=== PATIENT | male | born 1945 | race Two or more races ===

== ENCOUNTER 2017-01-31 13:59 | Emergency (ER) | payer MEDICARE ==
[~2017-01-31] VITALS: Ht 170.2 cm; Wt 72.6 kg
[2017-01-31] MEDS ORDERED: LOSARTAN POTASS25 MG ORAL (14:07)
--- NOTE | 2017-01-31 14:18 | Emergency Room Report ---
History of Present Illness General Chief Complaint: Pain Source: Patient, EMS Present Illness HPI Patient is a 71-year-old male who presented after having increased generalized weakness and difficulty with angulation. Patient poorly had a fall approximately 4 days ago. Patient been unable to walk since the fall. Patient had generalized weakness. He denied any pain to his head. Patient reports having increased pain to the lower extremities bilaterally.The patient was able to stand with EMS assistance there is unable to ambulate. Allergies: Coded Allergies: No Known Allergies (Unverified , 01/31/17) Patient History Past Medical History: see triage record Reviewed Nursing Documentation: PMH: Agreed, PSxH: Agreed Nursing Documentation-PMH Past Medical History: No History, Except For Hx Hypertension: Yes Review of Systems All Other Systems: negative except mentioned in HPI Physical Exam Vital Signs Date Time Temp Pulse Resp B/P Pulse Ox O2 Delivery O2 Flow Rate FiO2 01/31/17 14:00 98.2 89 16 176/118 95 Room Air Sp02 EP Interpretation: reviewed, normal General Appearance: normal inspection, alert, GCS 15, mild distress, thin, Chronically Ill Head: atraumatic ENT: normal ENT inspection, hearing grossly normal, normal voice Neck: normal inspection, full range of motion, supple, no bony tend Respiratory: normal inspection, lungs clear, normal breath sounds, no respiratory distress, no retraction, no wheezing Cardiovascular #1: regular rate, rhythm, no edema Gastrointestinal: normal inspection, normal bowel sounds, soft, no guarding, no hernia, mass - lower abdomen Genitourinary: no CVA tenderness Musculoskeletal: normal inspection, back normal, normal range of motion Neurologic: normal inspection, alert, oriented x3, responsive, 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 Differential diagnosis included was not limited to anemia, urinary tract infection, electrolyte abnormality, hypothyroidism, myocardial infarction, myasthenia gravis, dehydration, among others. Because of complexity of patient's case laboratory testing and imaging studies were ordered. Patient noted have the concerning generalized weakness and appears to be having difficulty caring for himself.Laboratory testing was unremarkable. CT imaging read by radiology showed no evident intracranial hemorrhage or stroke. CT of the abdomen pelvis there is a small pericardial effusion increased was unremarkable there is presacral soft tissue stranding is retroperitoneal lymphadenopathy with lymph nodes up to 2.5 x 2 cm L5 and S1 vertebra appear sclerotic as does the pelvis consistent with bone metastasis. The patient was discussed with [facility] for further management. The patient appears stable for transfer at this time. Labs Test 01/31/17 14:20 01/31/17 14:30 Urine Color Yellow Urine Appearance Clear Urine pH 5 (4.5-8.0) Urine Specific Seffner 1.020 (1.005-1.035) Urine Protein 1+ (NEGATIVE) Urine Glucose (UA) Negative (NEGATIVE) Urine Ketones 4+ (NEGATIVE) Urine Occult Blood 2+ (NEGATIVE) Urine Nitrite Negative (NEGATIVE) Urine Bilirubin Negative (NEGATIVE) Urine Urobilinogen Normal MG/DL (0.0-1.0) Urine Leukocyte Esterase Negative (NEGATIVE) Urine RBC 2-4 /HPF (0 - 0) Urine WBC 0-2 /HPF (0 - 0) Urine Squamous Epithelial Cells Occasional /LPF Urine Bacteria Few /HPF (NONE) White Blood Count 8.7 K/UL (4.8-10.8) Red Blood Count 4.59 M/UL (4.70-6.10) Hemoglobin 12.2 G/DL (14.2-18.0) Hematocrit 37.2 % (42.0-52.0) Mean Corpuscular Volume 81 FL (80-99) Mean Corpuscular Hemoglobin 26.5 PG (27.0-31.0) Mean Corpuscular Hemoglobin Concent 32.7 G/DL (32.0-36.0) Red Cell Distribution Width 17.2 % (11.6-14.8) Platelet Count 402 K/UL (150-450) Mean Platelet Volume 6.3 FL (6.5-10.1) Neutrophils (%) (Auto) % (45.0-75.0) Lymphocytes (%) (Auto) % (20.0-45.0) Monocytes (%) (Auto) % (1.0-10.0) Eosinophils (%) (Auto) % (0.0-3.0) Basophils (%) (Auto) % (0.0-2.0) Differential Total Cells Counted 100 Neutrophils % (Manual) 81 % (45-75) Lymphocytes % (Manual) 9 % (20-45) Monocytes % (Manual) 9 % (1-10) Eosinophils % (Manual) 0 % (0-3) Basophils % (Manual) 1 % (0-2) Band Neutrophils 0 % (0-8) Platelet Estimate Adequate Platelet Morphology Normal Hypochromasia 1+ Anisocytosis 1+ Prothrombin Time 10.4 SEC (9.30-11.50) Prothromb Time International Ratio 1.0 (0.9-1.1) Activated Partial Thromboplast Time 33 SEC (23-33) Sodium Level 141 mEQ/L (135-145) Potassium Level 3.8 mEQ/L (3.4-4.9) Chloride Level 97 mEQ/L (98-107) Carbon Dioxide Level 23 mEQ/L (20-30) Anion Gap 21 (5-15) Blood Urea Nitrogen 24 mg/dL (7-23) Creatinine 0.7 mg/dL (0.7-1.2) Estimat Glomerular Filtration Rate > 60 mL/min (>60) Glucose Level 111 mg/dL (74-106) Lactic Acid Level 1.50 mmol/L (0.66-2.22) Calcium Level 9.8 mg/dL (8.6-10.2) Total Bilirubin 0.5 mg/dL (0.0-1.2) Aspartate Amino Transf (AST/SGOT) 8 U/L (5-40) Alanine Aminotransferase (ALT/SGPT) 5 U/L (3-41) Alkaline Phosphatase 467 U/L (40-129) Total Creatine Kinase 38 U/L (38-174) Creatine Kinase MB < 1.5 ng/mL (< 6.7) Creatine Kinase MB Relative Index Troponin I < 0.30 ng/mL (<=0.30) Pro-B-Type Natriuretic Peptide 635 pg/mL (0-125) Total Protein 8.1 g/dL (6.6-8.7) Albumin 3.9 g/dL (3.5-5.2) Globulin 4.2 g/dL Albumin/Globulin Ratio 0.9 (1.0-2.7) Last Vital Signs Date Time Temp Pulse Resp B/P Pulse Ox O2 Delivery O2 Flow Rate FiO2 01/31/17 14:00 98.2 89 16 176/118 95 Room Air Status: improved Disposition: [facility] Condition: Serious Jean-Pierre Toro January 31, 2017 14:18
[2017-01-31] MEDS ORDERED: metroNIDAZOLE 500mg 100 ML IV SCH (14:30)
[2017-01-31] MEDS ORDERED: Cefepime HCl 1 GM in NS 55 ML IV SCH (14:30)
[2017-01-31] MEDS ORDERED: Tubing IV Cassette IV ONE (14:56)
[2017-01-31] MEDS ORDERED: NS 55 ML IV ONE (14:56)
[2017-01-31] MEDS ORDERED: Tubing IV Secondary IV ONE (14:56)
[2017-01-31] MEDS ORDERED: Cefepime 1gm vial ONE (14:56)
--- NOTE | 2017-01-31 15:01 | Diagnostic Imaging Report ---
Indication: Chest Pain Comparison: None A single view chest radiograph was obtained. Findings: No definite infiltrate or pulmonary vascular congestion identified. The heart is enlarged. The aorta is mildly enlarged consistent with atherosclerotic vascular disease. The bones are osteopenic. Impression: No acute disease
[2017-01-31 15:04] LABS: APPEARANCE,URINE CLEAR; KETONES,URINE 4+ (NEGATIVE); LEUKOCYTE ESTERASE ,URINE NEGATIVE (NEGATIVE); NITRITE,URINE NEGATIVE (NEGATIVE); PH,URINE 5 (4.5-8.0); PROTEIN,URINE 1+ (NEGATIVE); UROBILINOGEN,URINE NORMAL MG/DL (0.0-1.0)
[2017-01-31 15:07] LABS: MEAN CORPUSCULAR HEMOGLOBIN 26.5 PG (27.0-31.0); MEAN CORPUSCULAR HGB CONC 32.7 G/DL (32.0-36.0); MEAN CORPUSCULAR VOLUME 81 FL (80-99); MEAN PLATELET VOLUME 6.3 FL (6.5-10.1); PLATELET COUNT 402 K/UL (150-450); RED BLOOD COUNT 4.59 M/UL (4.70-6.10); RED CELL DISTRIBUTION WIDTH 17.2 % (11.6-14.8); WHITE BLOOD COUNT 8.7 K/UL (4.8-10.8)
[2017-01-31 15:11] LABS: PROTHROMBIN TIME 10.4 SEC (9.30-11.50)
[2017-01-31 15:19] LABS: BACTERIA,URINE FEW /HPF; SQUAMOUS EPITHELIAL CELL,UR OCCASIONAL /LPF (NONE/OCC); WBC,URINE 0-2 /HPF (0 - 0)
[2017-01-31 15:31] LABS: TROPONIN I < 0.30 ng/mL (<=0.30)
[2017-01-31 15:34] LABS: ALANINE AMINOTRANSFERASE 5 U/L (3-41); ALBUMIN/GLOBULIN RATIO 0.9 (1.0-2.7); ANION GAP 21 (5-15); ASPARTATE AMINO TRANSFERASE 8 U/L (5-40); CALCIUM 9.8 mg/dL (8.6-10.2); CARBON DIOXIDE 23 mEQ/L (20-30); CHLORIDE 97 mEQ/L (98-107); CREATININE 0.7 mg/dL (0.7-1.2); GLOMERULAR FILTRATION RATE > 60 mL/min (>60); HEMOLYSIS 0; POTASSIUM 3.8 mEQ/L (3.4-4.9); SODIUM 141 mEQ/L (135-145); TOTAL PROTEIN 8.1 g/dL (6.6-8.7)
--- NOTE | 2017-01-31 15:38 | Diagnostic Imaging Report ---
Indication: Headache Technique: Contiguous 5 mm thick transaxial imaging of the head obtained in a Siemens Sensation [address] scanner. Soft tissue and bone windows generated. Total Dose length Product (DLP): [address] Dose Index Volume (CTDIvol): 70.38 mGy Comparison: none Findings: There is mild prominence of the ventricles, basal cisterns, and cerebral sulci consistent with atrophy. Mild, nonspecific, white matter hypoattenuation is noted throughout the brain consistent with chronic small vessel disease. Cystic focus in the right frontal gutiérrez radiata adjacent to the anterior horn of the lateral ventricle consistent with an old lacunar infarct. There is no midline shift, edema, acute hemorrhage, mass effect, or abnormal extra-axial fluid collections. Bones and extra osseous soft tissues are unremarkable. Impression: No acute intracranial bleed, mass effect or edema. 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 Mild atrophy of the brain. Nonspecific white matter hypoattenuation probably due to chronic small vessel disease. The CT scanner at [facility] is accredited by the [employer] and the scans are performed using dose optimization techniques as appropriate to a performed exam including Automatic Exposure control.
[2017-01-31 15:44] LABS: CKMB < 1.5 ng/mL (< 6.7)
[2017-01-31 16:00] VITALS: BP 203/77
[2017-01-31 16:21] LABS: ANISOCYTOSIS 1+; BAND NEUTROPHILS % (MANUAL) 0 % (0-8); BASOPHILS % (MANUAL) 1 % (0-2); EOSINOPHILS % (MANUAL) 0 % (0-3); HYPOCHROMASIA 1+; LYMPHOCYTES % (MANUAL) 9 % (20-45); NEUTROPHILS % (MANUAL) 81 % (45-75); PLATELET ESTIMATE ADEQUATE; PLATELET MORPHOLOGY NORMAL; TOTAL CELLS COUNTED 100
[2017-01-31 18:00] VITALS: BP 223/92
[2017-01-31] MEDS ORDERED: Metoprolol 5mg/5ml Inj IVP ONE (18:15)
[2017-01-31 18:30] VITALS: BP 193/83
[2017-01-31] MEDS ORDERED: Enalaprilat 2.5mg/2ml Inj IV ONE (19:00)
[2017-01-31 19:07] VITALS: BP 179/82
[2017-01-31 19:11] VITALS: BP 179/82
--- NOTE | 2017-02-01 08:34 | Diagnostic Imaging Report ---
Indication: Abdominal pain Technique: Continuous helical transaxial imaging of the abdomen and pelvis was obtained from the lung bases to the pubic symphysis during intravenous contrast administration. Coronal 2-D reformats were also obtained. Study obtained in a Siemens sensation [address] Total Dose length Product (DLP): [address] Dose Index Volume (CTDIvol): 13 mGy Comparison: None Findings: A small pericardial effusion is present. Aorta is moderately calcified. There is a tiny 2-3 mm nodule at the right lung base. This may be disregarded per Fleischner Society criteria. There are several tiny hypodensities in the liver too small to characterize adequately. Gallbladder is grossly unremarkable. Spleen is unremarkable. There is no adrenal mass seen. The pancreas is unremarkable. No hydronephrosis demonstrated. There is a Webb catheter present in good position. Surgical clips are seen in the area of the prostate gland which appears calcified. There is presacral soft tissue stranding. Mild distention of the rectum noted secondary stool. The appendix is seen and appears normal. There is no free fluid or free air. There is a small left inguinal hernia containing fat. There is retroperitoneal lymphadenopathy demonstrated with nodes measuring up to 2.5 x 2 CM. Bilateral iliac lymphadenopathy is also present more on the left than the right. The L5 and S1 vertebra appear sclerotic as does portions of the pelvis. Findings consistent with metastatic bone disease which may be confirmed on bone scan if needed. Impression: Retroperitoneal and bilateral iliac lymphadenopathy suspicious for malignant neoplasm of prostate carcinoma. Suspicion of metastatic bone disease as discussed above. Fecal retention with mild distention of the rectum and presacral edema which may be secondary. Small pericardial effusion Evidence of previous prostate surgery. Webb catheter in good position Normal appendix Small left inguinal hernia containing fat The CT scanner at [facility] is accredited by the [employer] and the scans are performed using dose optimization techniques as appropriate to a performed exam including Automatic Exposure control.
--- NOTE | 2017-02-01 14:27 | Cardiology Report ---
APPROVED REPORT EKG Measurement Heart [id number] Sinus rhythm with premature atrial complexes Possible Inferior infarct, age undetermined Abnormal ECG
== END 2017-01-31 19:20 | disposition short-term general hospital (02) ==
LOC: EDBD 13:59 → EMR 14:30
DX: R53.1 Weakness (principal); C61 Malignant neoplasm of prostate; Z91.81 History of falling; I10 Essential (primary) hypertension
CPT/HCPCS: 36415; 70450; 71010; 74177; 80053; 81003; 82550; 82553; 82962; 83605; 83880; 84484; 85007; 85025; 85610; 85730; 87040; 93005; 96360; 96361; 96374; 96375; 99285; J0692; Q9967